=== PATIENT | female | born 1970 | race Asian ===

== ENCOUNTER 2016-08-28 12:32 | Emergency (ER) | payer OTHER ==
[~2016-08-28] VITALS: Ht 165.1 cm; Wt 108.6 kg
[~2016-08-28 12:32] MED LIST: ATOR20TA86 PO; BUSP5TAB20 PO; DIVA500T52 PO; LEVE250T55 PO; LEVE500T53 PO; LORA0.5T83 PO; PARO40TA PO; QUET300T2 PO; QUET50TA PO; TOPI100 PO
[2016-08-28] MEDS ORDERED: RANI75TA19 PO (13:12)
[2016-08-28 18:04] VITALS: BP 124/59
== END 2016-08-28 18:05 | disposition home or self-care (01) ==
LOC: EMS 12:33
DX: S09.90XA Unspecified injury of head, initial encounter (principal); Z88.4 Allergy status to anesthetic agent; Z88.2 Allergy status to sulfonamides; W07.XXXA Fall from chair, initial encounter; Y93.89 Activity, other specified; Y92.89 Other specified places as the place of occurrence of the external cause; Y99.8 Other external cause status
CPT/HCPCS: 93005; 99283

== ENCOUNTER 2017-05-05 17:23 | Inpatient (IN) | payer OTHER ==
[~2017-05-05] VITALS: Ht 165.1 cm; Wt 97.3 kg
[~2017-05-05 17:23] MED LIST changes: -LEVE500T53 PO; -QUET300T2 PO; +RANI75TA19 PO; -TOPI100 PO; +TOPI100T37 PO
[2017-05-05 19:11] LABS: HEMATOCRIT 41.1 % (36-46); HEMOGLOBIN 14.2 g/dL (12.0-16.0); MEAN CORPUSCULAR HEMOGLOBIN 33.7 pg (26.0-34.0); MEAN CORPUSCULAR HGB CONC 34.5 G/dL (31.0-37.0); MEAN CORPUSCULAR VOLUME 98 fL (80-100); PLATELET COUNT (AUTO) 172 K/uL (150-450); RED BLOOD CELL COUNT(AUTO) 4.21 MIL/uL (4.00-5.20); RED CELL DISTRIBUTION WIDTH 14.1 % (11.5-14.5); WHITE BLOOD COUNT (AUTO) 9.6 K/uL (4.5-11.0)
[2017-05-05 19:20] LABS: ANION GAP 9 mmol/L (8-16); CALCIUM, TOTAL 8.5 mg/dL (8.8-10.5); CARBON DIOXIDE 23 mmol/L (22-29); CHLORIDE 102 mmol/L (98-107); CREATININE 1.09 mg/dL (0.60-1.30); GLOMERULAR FILTR. RATE CALC 55 mL/min (>60); POTASSIUM 3.7 mmol/L (3.5-5.1); SODIUM SERUM 134 mmol/L (136-145); UREA NITROGEN, BLOOD 10 mg/dL (7-18)
[2017-05-05 19:26] LABS: ALANINE AMINOTRANSFERASE 44 U/L (12-78); ALBUMIN 2.6 g/dL (3.4-5.0); ASPARTATE AMINOTRANSFERASE 79 U/L (15-37); BILIRUBIN,TOTAL 0.7 mg/dL (0.1-1.0); TOTAL PROTEIN, SERUM 7.8 g/dL (6.4-8.2); VALPROIC ACID 135 mcg/mL (50-100)
[2017-05-05 20:06] LABS: LYMPHOCYTES % (MANUAL) 19 % (22-44); TOTAL CELLS COUNTED 100
[2017-05-05 20:06] LABS: APPEARANCE,URINE CLOUDY (CLEAR); GLUCOSE, URINE (UA) NEGATIVE (NEGATIVE); KETONES,URINE TRACE mg/dL (NEGATIVE); LEUKOCYTE ESTERASE ,URINE MODERATE (NEGATIVE); OCCULT BLOOD,URINE LARGE (NEGATIVE); PROTEIN,URINE POS 1+ (NEGATIVE)
[2017-05-05 20:07] LABS: ADD UA MICROSCOPIC YES
[2017-05-05] MEDS ORDERED: QUET300T2 PO (20:09)
[2017-05-05] MEDS ORDERED: PARO10TA89 PO (20:09)
[2017-05-05] MEDS ORDERED: ACETAMINOPHEN 325 MG TABLET PO PRN (20:15)
[2017-05-05] MEDS ORDERED: LACTULOSE 20 GM/30 ML SOLUTION UDCUP PO ONE (20:15)
[2017-05-05] MEDS ORDERED: ONDANSETRON HCL 4 MG/2 ML VIAL IVP PRN (20:15)
[2017-05-05 20:17] LABS: RBC,URINE 26-50 /HPF (0-2)
[2017-05-05 20:18] LABS: SQUAMOUS EPITHELIAL CELL,UR Few /LPF (None Seen)
[2017-05-05] MEDS ORDERED: SODIUM CHLORIDE 0.9% 1,000 ML IV ONE (21:00)
[2017-05-05] MEDS ORDERED: MAGNESIUM HYDROXIDE SUSPENSION 30 ML UDCUP PO PRN (21:00)
[2017-05-05 21:08] VITALS: BP 103/68
[2017-05-05] MEDS: CefTRIAXone 1 GM/DEXTROSE 50 ML IV SCH (23:46)
[2017-05-05] MEDS: DOCUSATE SODIUM 100 MG CAPSULE PO SCH (23:47)
[2017-05-05] MEDS: LevETIRAcetam 250 MG TABLET PO SCH (23:49)
[2017-05-05 23:59] VITALS: BP 107/65
[2017-05-06 04:00] VITALS: BP 133/74
[2017-05-06] MEDS: ACETAMINOPHEN 325 MG TABLET PO PRN ×2 (06:22→19:02)
[2017-05-06 07:45] VITALS: BP 97/59
[2017-05-06] MEDS: PANTOPRAZOLE SODIUM 40 MG DR TABLET PO SCH (08:24)
[2017-05-06] MEDS: LevETIRAcetam 250 MG TABLET PO SCH ×2 (08:24→20:28)
[2017-05-06] MEDS: DOCUSATE SODIUM 100 MG CAPSULE PO SCH ×2 (08:24→20:28)
[2017-05-06 12:51] VITALS: BP 101/62
[2017-05-06 16:29] VITALS: BP 131/68
[2017-05-06 19:56] VITALS: BP 126/79
[2017-05-06] MEDS: CefTRIAXone 1 GM/DEXTROSE 50 ML IV SCH (20:32)
[2017-05-07 00:03] VITALS: BP 114/66
[2017-05-07] MEDS ORDERED: OLAN5TAB2 PO (05:10)
[2017-05-07] MEDS ORDERED: HYD25 PO (05:10)
[2017-05-07] MEDS ORDERED: HYDR200T4 PO (05:10)
[2017-05-07] MEDS ORDERED: ALBU8HFA4 IH (05:26)
[2017-05-07] MEDS: ACETAMINOPHEN 325 MG TABLET PO PRN ×4 (06:10→22:59)
[2017-05-07 07:49] VITALS: BP 136/58
[2017-05-07] MEDS: DOCUSATE SODIUM 100 MG CAPSULE PO SCH ×2 (08:07→20:34)
[2017-05-07] MEDS: LevETIRAcetam 250 MG TABLET PO SCH ×2 (08:07→20:34)
[2017-05-07] MEDS: PANTOPRAZOLE SODIUM 40 MG DR TABLET PO SCH (08:07)
[2017-05-07 11:44] VITALS: BP 123/74
[2017-05-07 15:42] VITALS: BP 122/66
[2017-05-07 15:45] LABS: HEMATOCRIT 40.2 % (36-46); HEMOGLOBIN 13.6 g/dL (12.0-16.0); MEAN CORPUSCULAR HEMOGLOBIN 33.9 pg (26.0-34.0); MEAN CORPUSCULAR HGB CONC 33.9 G/dL (31.0-37.0); MEAN CORPUSCULAR VOLUME 100 fL (80-100); PLATELET COUNT (AUTO) 167 K/uL (150-450); RED BLOOD CELL COUNT(AUTO) 4.02 MIL/uL (4.00-5.20); RED CELL DISTRIBUTION WIDTH 14.6 % (11.5-14.5); WHITE BLOOD COUNT (AUTO) 12.1 K/uL (4.5-11.0)
[2017-05-07 16:09] LABS: ALBUMIN 2.4 g/dL (3.4-5.0); BILIRUBIN,TOTAL 0.5 mg/dL (0.1-1.0); CALCIUM, TOTAL 8.9 mg/dL (8.8-10.5); CREATININE 1.06 mg/dL (0.60-1.30); POTASSIUM 4.3 mmol/L (3.5-5.1); TOTAL PROTEIN, SERUM 7.2 g/dL (6.4-8.2)
[2017-05-07 16:31] LABS: RBC MORPHOLOGY COMMENT ABNORMAL R
[2017-05-07 16:50] LABS: BAND NEUTROPHILS % (MANUAL) 7 % (1-5); LYMPHOCYTES % (MANUAL) 13 % (22-44); TOTAL CELLS COUNTED 100
[2017-05-07] MEDS ORDERED: QUET200T PO (17:14)
[2017-05-07] MEDS ORDERED: LEVE500T53 PO (17:14)
[2017-05-07] MEDS ORDERED: PARO20TA24 PO (17:14)
[2017-05-07] MEDS ORDERED: ONDANSETRON HCL 4 MG/2 ML VIAL IVP PRN (17:15)
[2017-05-07 20:18] VITALS: BP 117/70
[2017-05-07] MEDS: CefTRIAXone 1 GM/DEXTROSE 50 ML IV SCH (20:34)
[2017-05-07] MEDS ORDERED: SODIUM CHLORIDE 0.9% 500 ML IV ONE (20:37)
[2017-05-07] MEDS: LORazepam 2 MG/ML VIAL IVP PRN (22:32)
[2017-05-07 23:01] VITALS: BP 114/59
[2017-05-08 04:00] VITALS: BP 96/56
[2017-05-08] MEDS: ACETAMINOPHEN 325 MG TABLET PO PRN ×3 (05:40→21:26)
[2017-05-08 07:44] VITALS: BP 106/59
[2017-05-08] MEDS: PANTOPRAZOLE SODIUM 40 MG DR TABLET PO SCH (08:31)
[2017-05-08] MEDS: LevETIRAcetam 250 MG TABLET PO SCH ×2 (08:31→20:24)
[2017-05-08] MEDS: DOCUSATE SODIUM 100 MG CAPSULE PO SCH ×2 (08:31→20:24)
[2017-05-08 11:54] VITALS: BP 111/63
[2017-05-08] MEDS ORDERED: BISACODYL 10 MG RECTAL RECTAL SUPPOSITORY PR PRN (12:00)
[2017-05-08] MEDS ORDERED: ALBUTEROL SULFATE 2.5 MG/0.5 ML NEB SOLUTION NEB PRN (12:00)
[2017-05-08] MEDS ORDERED: IPRATROPIUM BROMIDE 0.5 MG/2.5 ML NEB SOLUTION NEB PRN (12:00)
[2017-05-08] MEDS ORDERED: MAGNESIUM HYDROXIDE SUSPENSION 30 ML UDCUP PO PRN (12:00)
[2017-05-08] MEDS ORDERED: ZOLPIDEM TARTRATE 5 MG TABLET PO PRN (12:00)
[2017-05-08] MEDS ORDERED: ONDANSETRON HCL 4 MG/2 ML VIAL IVP PRN (12:00)
[2017-05-08] MEDS: PIPERACILLIN/TAZO 3.375 GM/D5W 50 ML IV SCH ×3 (12:17→23:59)
[2017-05-08] MEDS: MetroNIDAZOLE 500 MG/NACL 100 ML IV SCH ×2 (13:01→21:23)
[2017-05-08 15:24] VITALS: BP 113/64
[2017-05-08] MEDS: HEPARIN SODIUM,PORCINE 5,000 UNITS/ML VIAL SQ SCH ×2 (16:18→23:58)
[2017-05-08 19:52] VITALS: BP 106/60
[2017-05-08] MEDS: CefTRIAXone 1 GM/DEXTROSE 50 ML IV SCH (20:24)
[2017-05-08 23:27] VITALS: BP 98/55
[2017-05-09] MEDS: MetroNIDAZOLE 500 MG/NACL 100 ML IV SCH ×3 (04:44→21:38)
[2017-05-09 04:54] VITALS: BP 111/76
[2017-05-09] MEDS: OxyCODONE HCL/ACETAMINOPHEN 5-325 MG TABLET PO PRN ×4 (05:03→23:44)
[2017-05-09] MEDS: PIPERACILLIN/TAZO 3.375 GM/D5W 50 ML IV SCH ×4 (06:04→23:44)
[2017-05-09 08:00] VITALS: BP 105/60
[2017-05-09] MEDS: LevETIRAcetam 250 MG TABLET PO SCH ×2 (08:02→19:58)
[2017-05-09] MEDS: HEPARIN SODIUM,PORCINE 5,000 UNITS/ML VIAL SQ SCH ×3 (08:03→23:44)
[2017-05-09] MEDS: DOCUSATE SODIUM 100 MG CAPSULE PO SCH ×2 (08:03→21:00)
[2017-05-09] MEDS: PANTOPRAZOLE SODIUM 40 MG/VIAL IVP SCH (08:03)
[2017-05-09 11:21] VITALS: BP 107/58
[2017-05-09 15:36] VITALS: BP 116/77
[2017-05-09 16:10] LABS: BASOPHILS % (AUTO) 0.2 % (0.0-2.0); EOSINOPHILS % (AUTO) 0.4 % (1.0-6.0); HEMATOCRIT 40.8 % (36-46); LYMPHOCYTES # (AUTO) 2.2 K/uL (1.0-4.8); LYMPHOCYTES % (AUTO) 10.9 % (22.0-44.0); MEAN CORPUSCULAR HGB CONC 34.4 G/dL (31.0-37.0); MEAN CORPUSCULAR VOLUME 99 fL (80-100); MONOCYTES # (AUTO) 3.5 K/uL (0.1-1.0); MONOCYTES % (AUTO) 17.8 % (2.0-9.0); NEUTROPHILS % (AUTO) 70.7 % (40.0-70.0); PLATELET COUNT (AUTO) 190 K/uL (150-450); RED BLOOD CELL COUNT(AUTO) 4.11 MIL/uL (4.00-5.20); RED CELL DISTRIBUTION WIDTH 14.4 % (11.5-14.5); WHITE BLOOD COUNT (AUTO) 19.8 K/uL (4.5-11.0)
[2017-05-09 16:19] LABS: CALCIUM, TOTAL 8.8 mg/dL (8.8-10.5); CREATININE 1.19 mg/dL (0.60-1.30)
[2017-05-09 16:25] LABS: ALBUMIN 2.3 g/dL (3.4-5.0); BILIRUBIN,TOTAL 0.8 mg/dL (0.1-1.0); TOTAL PROTEIN, SERUM 7.7 g/dL (6.4-8.2)
[2017-05-09] MEDS: CefTRIAXone 1 GM/DEXTROSE 50 ML IV SCH (19:58)
[2017-05-09 20:08] VITALS: BP 116/69
[2017-05-09 23:37] VITALS: BP 109/55
[2017-05-10] MEDS: MORPHINE SULFATE 2 MG/ML SYRINGE IVP PRN ×2 (00:51→04:56)
[2017-05-10 03:33] VITALS: BP 118/70
[2017-05-10] MEDS: LORazepam 2 MG/ML VIAL IVP PRN ×2 (03:37→08:03)
[2017-05-10] MEDS: MetroNIDAZOLE 500 MG/NACL 100 ML IV SCH ×3 (04:46→21:15)
[2017-05-10] MEDS: PIPERACILLIN/TAZO 3.375 GM/D5W 50 ML IV SCH ×3 (06:20→17:20)
[2017-05-10 07:21] LABS: ALBUMIN 2.1 g/dL (3.4-5.0); CALCIUM, TOTAL 8.5 mg/dL (8.8-10.5); CREATININE 1.1 mg/dL (0.60-1.30); POTASSIUM 3.5 mmol/L (3.5-5.1)
[2017-05-10 08:03] VITALS: BP 126/59
[2017-05-10] MEDS: LevETIRAcetam 250 MG TABLET PO SCH ×2 (08:04→21:11)
[2017-05-10] MEDS: DOCUSATE SODIUM 100 MG CAPSULE PO SCH ×2 (08:04→21:19)
[2017-05-10] MEDS: HEPARIN SODIUM,PORCINE 5,000 UNITS/ML VIAL SQ SCH ×3 (08:04→23:32)
[2017-05-10] MEDS: PANTOPRAZOLE SODIUM 40 MG/VIAL IVP SCH (08:04)
[2017-05-10 08:38] LABS: BASOPHILS # (AUTO) 0.09 K/uL (0.00-0.20); BASOPHILS % (AUTO) 0.5 % (0.0-2.0); EOSINOPHILS # (AUTO) 0.07 K/uL (0.00-0.70); EOSINOPHILS % (AUTO) 0.37 % (1.0-6.0); HEMATOCRIT 38.4 % (36-46); HEMOGLOBIN 12.6 g/dL (12.0-16.0); LYMPHOCYTES # (AUTO) 2.1 K/uL (1.0-4.8); LYMPHOCYTES % (AUTO) 11.2 % (22.0-44.0); MEAN CORPUSCULAR HEMOGLOBIN 33.1 pg (26.0-34.0); MEAN CORPUSCULAR HGB CONC 32.8 G/dL (31.0-37.0); MEAN CORPUSCULAR VOLUME 101 fL (80-100); MONOCYTES # (AUTO) 3.7 K/uL (0.1-1.0); MONOCYTES % (AUTO) 19.6 % (2.0-9.0); NEUTROPHILS % (AUTO) 68.4 % (40.0-70.0); PLATELET COUNT (AUTO) 210 K/uL (150-450); RED CELL DISTRIBUTION WIDTH 14.6 % (11.5-14.5); WHITE BLOOD COUNT (AUTO) 19.1 K/uL (4.5-11.0)
[2017-05-10 08:43] LABS: RBC MORPHOLOGY COMMENT ABNORMAL RBC MORPH
[2017-05-10 11:15] VITALS: BP 122/62
[2017-05-10] MEDS: OxyCODONE HCL/ACETAMINOPHEN 5-325 MG TABLET PO PRN (11:36)
[2017-05-10] MEDS ORDERED: HydrOXYzine HCL 25 MG TABLET PO PRN (15:15)
[2017-05-10] MEDS ORDERED: RANITIDINE HCL 150 MG TABLET PO PRN (15:30)
[2017-05-10 16:13] VITALS: BP 115/62
[2017-05-10] MEDS: BusPIRone HCL 5 MG TABLET PO SCH ×2 (16:33→21:11)
[2017-05-10] MEDS: DIVALPROEX SODIUM 500 MG ER TABLET PO SCH ×2 (16:33→21:11)
[2017-05-10] MEDS ORDERED: IOVERSOL 320 MG/ML 100 ML VIAL ONE (17:30)
[2017-05-10] MEDS ORDERED: SODIUM CHLORIDE 0.9% 100 ML ONE (17:30)
[2017-05-10] MEDS ORDERED: BARIUM SULFATE 0.1% SUSPENSION 450 ML BOTTLE ONE (17:31)
[2017-05-10 19:42] VITALS: BP 98/59
[2017-05-10] MEDS: LevETIRAcetam 500 MG TABLET PO SCH (21:00)
[2017-05-10] MEDS: HYDROXYCHLOROQUINE SULFATE 200 MG TABLET PO SCH (21:11)
[2017-05-10] MEDS: TOPIRAMATE 100 MG TABLET PO SCH (21:12)
[2017-05-10] MEDS: QUEtiapine FUMARATE 200 MG TABLET PO SCH (21:12)
[2017-05-10] MEDS: CefTRIAXone 1 GM/DEXTROSE 50 ML IV SCH (22:29)
[2017-05-10 23:23] VITALS: BP 104/72
[2017-05-10] MEDS: DOXYCYCLINE 100 MG CAPSULE PO SCH (23:32)
[2017-05-10] MEDS: CefoTEtan DISOD 2 GM/DEXTROSE 50 ML IV SCH (23:32)
[2017-05-11] MEDS: OxyCODONE HCL/ACETAMINOPHEN 5-325 MG TABLET PO PRN ×2 (02:31→08:55)
[2017-05-11 04:29] VITALS: BP 109/56
[2017-05-11 05:58] LABS: HEMATOCRIT 33.2 % (36-46); HEMOGLOBIN 11.4 g/dL (12.0-16.0); MEAN CORPUSCULAR HEMOGLOBIN 34.1 pg (26.0-34.0); MEAN CORPUSCULAR HGB CONC 34.3 G/dL (31.0-37.0); MEAN CORPUSCULAR VOLUME 100 fL (80-100); PLATELET COUNT (AUTO) 256 K/uL (150-450); RED BLOOD CELL COUNT(AUTO) 3.33 MIL/uL (4.00-5.20); RED CELL DISTRIBUTION WIDTH 14.3 % (11.5-14.5); WHITE BLOOD COUNT (AUTO) 18.7 K/uL (4.5-11.0)
[2017-05-11 07:33] LABS: BAND NEUTROPHILS % (MANUAL) 2 % (1-5); LYMPHOCYTES % (MANUAL) 16 % (22-44); TOTAL CELLS COUNTED 100
[2017-05-11 08:07] VITALS: BP 115/69
[2017-05-11] MEDS: PANTOPRAZOLE SODIUM 40 MG/VIAL IVP SCH (08:38)
[2017-05-11] MEDS: ATORVASTATIN CALCIUM 20 MG TABLET PO SCH (08:38)
[2017-05-11] MEDS: DIVALPROEX SODIUM 500 MG ER TABLET PO SCH ×3 (08:39→20:54)
[2017-05-11] MEDS: DOCUSATE SODIUM 100 MG CAPSULE PO SCH ×2 (08:39→20:53)
[2017-05-11] MEDS: LevETIRAcetam 250 MG TABLET PO SCH ×2 (08:39→20:54)
[2017-05-11] MEDS: PARoxetine HCL 20 MG TABLET PO SCH (08:39)
[2017-05-11] MEDS: DOXYCYCLINE 100 MG CAPSULE PO SCH ×2 (08:40→20:56)
[2017-05-11] MEDS: TOPIRAMATE 100 MG TABLET PO SCH ×2 (08:40→20:55)
[2017-05-11] MEDS: BusPIRone HCL 5 MG TABLET PO SCH ×3 (08:40→20:53)
[2017-05-11] MEDS: HYDROXYCHLOROQUINE SULFATE 200 MG TABLET PO SCH ×2 (08:40→20:55)
[2017-05-11] MEDS: HEPARIN SODIUM,PORCINE 5,000 UNITS/ML VIAL SQ SCH ×2 (08:44→16:43)
[2017-05-11] MEDS: LevETIRAcetam 500 MG TABLET PO SCH ×2 (08:56→21:00)
[2017-05-11 09:41] LABS: APPEARANCE,URINE CLEAR (CLEAR); GLUCOSE, URINE (UA) NEGATIVE (NEGATIVE); KETONES,URINE NEGATIVE (NEGATIVE); LEUKOCYTE ESTERASE ,URINE NEGATIVE (NEGATIVE); OCCULT BLOOD,URINE NEGATIVE (NEGATIVE); PROTEIN,URINE NEGATIVE (NEGATIVE)
[2017-05-11 10:01] LABS: RBC,URINE 0-2 /HPF (0-2); SQUAMOUS EPITHELIAL CELL,UR Few /LPF (None Seen); WBC,URINE 0-2 /HPF (0-5)
[2017-05-11] MEDS: CefoTEtan DISOD 2 GM/DEXTROSE 50 ML IV SCH ×2 (11:26→23:00)
[2017-05-11] MEDS: MORPHINE SULFATE 2 MG/ML SYRINGE IVP PRN (15:05)
[2017-05-11 16:14] VITALS: BP 127/57
[2017-05-11 20:18] VITALS: BP 136/86
[2017-05-11] MEDS: QUEtiapine FUMARATE 200 MG TABLET PO SCH (20:55)
[2017-05-12] VITALS (7 sets, daily range): BP systolic 103–120; BP diastolic 51–69
[2017-05-12] MEDS: GuaiFENesin/D-METHORPHAN [SUGAR-FREE] 200-20MG/10 ML SYRUP UDCUP PO PRN (02:36)
[2017-05-12 06:10] LABS: HEMATOCRIT 34.6 % (36-46); HEMOGLOBIN 11.4 g/dL (12.0-16.0); MEAN CORPUSCULAR HEMOGLOBIN 33.3 pg (26.0-34.0); MEAN CORPUSCULAR HGB CONC 33.1 G/dL (31.0-37.0); MEAN CORPUSCULAR VOLUME 101 fL (80-100); PLATELET COUNT (AUTO) 254 K/uL (150-450); RED BLOOD CELL COUNT(AUTO) 3.43 MIL/uL (4.00-5.20); RED CELL DISTRIBUTION WIDTH 14.8 % (11.5-14.5); WHITE BLOOD COUNT (AUTO) 22.3 K/uL (4.5-11.0)
[2017-05-12 07:40] LABS: LYMPHOCYTES % (MANUAL) 14 % (22-44); TOTAL CELLS COUNTED 100
[2017-05-12] MEDS: HEPARIN SODIUM,PORCINE 5,000 UNITS/ML VIAL SQ SCH ×3 (08:00→16:46)
[2017-05-12] MEDS: DOCUSATE SODIUM 100 MG CAPSULE PO SCH ×2 (08:14→20:24)
[2017-05-12] MEDS: PANTOPRAZOLE SODIUM 40 MG/VIAL IVP SCH (08:14)
[2017-05-12] MEDS: DOXYCYCLINE 100 MG CAPSULE PO SCH ×2 (08:15→20:21)
[2017-05-12] MEDS: TOPIRAMATE 100 MG TABLET PO SCH ×2 (08:15→20:24)
[2017-05-12] MEDS: ATORVASTATIN CALCIUM 20 MG TABLET PO SCH (08:15)
[2017-05-12] MEDS: DIVALPROEX SODIUM 500 MG ER TABLET PO SCH ×3 (08:16→20:23)
[2017-05-12] MEDS: HYDROXYCHLOROQUINE SULFATE 200 MG TABLET PO SCH ×2 (08:16→20:23)
[2017-05-12] MEDS: PARoxetine HCL 20 MG TABLET PO SCH (08:17)
[2017-05-12] MEDS: LevETIRAcetam 500 MG TABLET PO SCH ×2 (08:17→20:24)
[2017-05-12] MEDS: BusPIRone HCL 5 MG TABLET PO SCH ×3 (08:18→20:24)
[2017-05-12] MEDS: CefoTEtan DISOD 2 GM/DEXTROSE 50 ML IV SCH ×2 (11:55→23:18)
[2017-05-12] MEDS: QUEtiapine FUMARATE 200 MG TABLET PO SCH (20:23)
[2017-05-13] MEDS: HEPARIN SODIUM,PORCINE 5,000 UNITS/ML VIAL SQ SCH ×4 (00:04→23:46)
[2017-05-13 01:45] VITALS: BP 103/50
[2017-05-13 05:23] VITALS: BP 102/50
[2017-05-13] MEDS: GuaiFENesin/D-METHORPHAN [SUGAR-FREE] 200-20MG/10 ML SYRUP UDCUP PO PRN (05:44)
[2017-05-13 06:05] LABS: HEMATOCRIT 34.5 % (36-46); HEMOGLOBIN 11.7 g/dL (12.0-16.0); MEAN CORPUSCULAR HEMOGLOBIN 33.9 pg (26.0-34.0); MEAN CORPUSCULAR HGB CONC 33.8 G/dL (31.0-37.0); MEAN CORPUSCULAR VOLUME 100 fL (80-100); PLATELET COUNT (AUTO) 260 K/uL (150-450); RED BLOOD CELL COUNT(AUTO) 3.44 MIL/uL (4.00-5.20); RED CELL DISTRIBUTION WIDTH 14.5 % (11.5-14.5); WHITE BLOOD COUNT (AUTO) 14.6 K/uL (4.5-11.0)
[2017-05-13 07:38] VITALS: BP 107/60
[2017-05-13 09:00] LABS: BAND NEUTROPHILS % (MANUAL) 2 % (1-5); LYMPHOCYTES % (MANUAL) 15 % (22-44); TOTAL CELLS COUNTED 100
[2017-05-13 09:01] LABS: RBC MORPHOLOGY COMMENT ABNORMAL R
[2017-05-13] MEDS: PARoxetine HCL 20 MG TABLET PO SCH (09:29)
[2017-05-13] MEDS: TOPIRAMATE 100 MG TABLET PO SCH ×2 (09:29→20:36)
[2017-05-13] MEDS: DIVALPROEX SODIUM 500 MG ER TABLET PO SCH ×3 (09:29→20:36)
[2017-05-13] MEDS: BusPIRone HCL 5 MG TABLET PO SCH ×3 (09:30→20:37)
[2017-05-13] MEDS: HYDROXYCHLOROQUINE SULFATE 200 MG TABLET PO SCH ×2 (09:30→20:36)
[2017-05-13] MEDS: DOXYCYCLINE 100 MG CAPSULE PO SCH ×2 (09:30→20:36)
[2017-05-13] MEDS: PANTOPRAZOLE SODIUM 40 MG/VIAL IVP SCH (09:32)
[2017-05-13] MEDS: LevETIRAcetam 500 MG TABLET PO SCH ×2 (09:32→20:41)
[2017-05-13] MEDS: ATORVASTATIN CALCIUM 20 MG TABLET PO SCH (09:32)
[2017-05-13] MEDS: DOCUSATE SODIUM 100 MG CAPSULE PO SCH ×2 (09:33→20:36)
[2017-05-13] MEDS: CefoTEtan DISOD 2 GM/DEXTROSE 50 ML IV SCH ×2 (11:16→22:40)
[2017-05-13] MEDS: OxyCODONE HCL/ACETAMINOPHEN 5-325 MG TABLET PO PRN (11:16)
[2017-05-13 11:30] VITALS: BP 103/64
[2017-05-13 14:28] LABS: GLUCOSE,POINT OF CARE 102 MG/DL (70-110)
[2017-05-13 15:48] VITALS: BP 101/68
[2017-05-13] MEDS: MORPHINE SULFATE 2 MG/ML SYRINGE IVP PRN (17:58)
[2017-05-13] MEDS ORDERED: SODIUM CHLORIDE 0.9% 1,000 ML IV ONE (18:31)
[2017-05-13 19:59] VITALS: BP 117/53
[2017-05-13] MEDS: QUEtiapine FUMARATE 200 MG TABLET PO SCH (20:36)
[2017-05-14] VITALS (7 sets, daily range): BP systolic 99–120; BP diastolic 50–77
[2017-05-14 06:54] LABS: BASOPHILS % (AUTO) 0.3 % (0.0-2.0); EOSINOPHILS % (AUTO) 1.5 % (1.0-6.0); HEMATOCRIT 33.6 % (36-46); HEMOGLOBIN 11.5 g/dL (12.0-16.0); LYMPHOCYTES # (AUTO) 2.2 K/uL (1.0-4.8); MEAN CORPUSCULAR HEMOGLOBIN 33.9 pg (26.0-34.0); MEAN CORPUSCULAR HGB CONC 34.1 G/dL (31.0-37.0); MEAN CORPUSCULAR VOLUME 99 fL (80-100); MONOCYTES # (AUTO) 2.4 K/uL (0.1-1.0); MONOCYTES % (AUTO) 19.8 % (2.0-9.0); NEUTROPHILS # (AUTO) 7.2 K/uL (1.8-7.7); NEUTROPHILS % (AUTO) 60.4 % (40.0-70.0); PLATELET COUNT (AUTO) 327 K/uL (150-450); RED BLOOD CELL COUNT(AUTO) 3.39 MIL/uL (4.00-5.20); RED CELL DISTRIBUTION WIDTH 14.4 % (11.5-14.5)
[2017-05-14] MEDS: TOPIRAMATE 100 MG TABLET PO SCH ×2 (08:17→20:04)
[2017-05-14] MEDS: DOCUSATE SODIUM 100 MG CAPSULE PO SCH ×2 (08:17→20:04)
[2017-05-14] MEDS: DIVALPROEX SODIUM 500 MG ER TABLET PO SCH ×3 (08:17→20:04)
[2017-05-14] MEDS: BusPIRone HCL 5 MG TABLET PO SCH ×3 (08:17→20:03)
[2017-05-14] MEDS: PANTOPRAZOLE SODIUM 40 MG/VIAL IVP SCH (08:18)
[2017-05-14] MEDS: LevETIRAcetam 500 MG TABLET PO SCH ×2 (08:20→20:04)
[2017-05-14] MEDS: PARoxetine HCL 20 MG TABLET PO SCH (08:20)
[2017-05-14] MEDS: DOXYCYCLINE 100 MG CAPSULE PO SCH ×2 (08:21→20:04)
[2017-05-14] MEDS: HYDROXYCHLOROQUINE SULFATE 200 MG TABLET PO SCH ×2 (08:21→20:04)
[2017-05-14] MEDS: HEPARIN SODIUM,PORCINE 5,000 UNITS/ML VIAL SQ SCH ×3 (08:41→23:19)
[2017-05-14] MEDS: ATORVASTATIN CALCIUM 20 MG TABLET PO SCH (08:42)
[2017-05-14] MEDS: CefoTEtan DISOD 2 GM/DEXTROSE 50 ML IV SCH ×2 (11:17→23:19)
[2017-05-14] MEDS: QUEtiapine FUMARATE 200 MG TABLET PO SCH (20:04)
[2017-05-14] MEDS: MORPHINE SULFATE 2 MG/ML SYRINGE IVP PRN (23:18)
[2017-05-15 04:49] VITALS: BP 102/56
[2017-05-15 06:48] LABS: BASOPHILS % (AUTO) 0.4 % (0.0-2.0); EOSINOPHILS % (AUTO) 1.1 % (1.0-6.0); HEMATOCRIT 34.3 % (36-46); HEMOGLOBIN 11.7 g/dL (12.0-16.0); LYMPHOCYTES # (AUTO) 2.3 K/uL (1.0-4.8); LYMPHOCYTES % (AUTO) 24.9 % (22.0-44.0); MEAN CORPUSCULAR HEMOGLOBIN 33.8 pg (26.0-34.0); MEAN CORPUSCULAR VOLUME 99 fL (80-100); MONOCYTES # (AUTO) 1.5 K/uL (0.1-1.0); MONOCYTES % (AUTO) 16.3 % (2.0-9.0); NEUTROPHILS # (AUTO) 5.2 K/uL (1.8-7.7); NEUTROPHILS % (AUTO) 57.3 % (40.0-70.0); PLATELET COUNT (AUTO) 380 K/uL (150-450); RED BLOOD CELL COUNT(AUTO) 3.45 MIL/uL (4.00-5.20); RED CELL DISTRIBUTION WIDTH 14.7 % (11.5-14.5); WHITE BLOOD COUNT (AUTO) 9.2 K/uL (4.5-11.0)
[2017-05-15 07:37] VITALS: BP 94/55
[2017-05-15] MEDS: HEPARIN SODIUM,PORCINE 5,000 UNITS/ML VIAL SQ SCH ×3 (09:55→23:18)
[2017-05-15] MEDS: PANTOPRAZOLE SODIUM 40 MG/VIAL IVP SCH (09:56)
[2017-05-15] MEDS: BusPIRone HCL 5 MG TABLET PO SCH ×3 (10:00→20:08)
[2017-05-15] MEDS: DIVALPROEX SODIUM 500 MG ER TABLET PO SCH ×3 (10:01→20:08)
[2017-05-15] MEDS: DOCUSATE SODIUM 100 MG CAPSULE PO SCH ×2 (10:01→20:08)
[2017-05-15] MEDS: LevETIRAcetam 500 MG TABLET PO SCH ×2 (10:02→20:08)
[2017-05-15] MEDS: ATORVASTATIN CALCIUM 20 MG TABLET PO SCH (10:02)
[2017-05-15] MEDS: PARoxetine HCL 20 MG TABLET PO SCH (10:03)
[2017-05-15] MEDS: HYDROXYCHLOROQUINE SULFATE 200 MG TABLET PO SCH ×2 (10:03→20:09)
[2017-05-15] MEDS: DOXYCYCLINE 100 MG CAPSULE PO SCH ×2 (10:04→20:08)
[2017-05-15] MEDS: TOPIRAMATE 100 MG TABLET PO SCH ×2 (10:04→20:08)
[2017-05-15] MEDS: OxyCODONE HCL/ACETAMINOPHEN 5-325 MG TABLET PO PRN ×3 (10:05→23:18)
[2017-05-15] MEDS: CefoTEtan DISOD 2 GM/DEXTROSE 50 ML IV SCH ×2 (10:52→23:00)
[2017-05-15] MEDS ORDERED: SODIUM CHLORIDE 0.9% 1,000 ML IV ONE (12:00)
[2017-05-15 12:27] VITALS: BP 105/64
[2017-05-15] MEDS ORDERED: BARIUM SULFATE 0.1% SUSPENSION 450 ML BOTTLE ONE (13:34)
[2017-05-15] MEDS ORDERED: IOVERSOL 350 MG/ML 150 ML VIAL ONE (13:34)
[2017-05-15 14:01] LABS: APPEARANCE,URINE CLEAR (CLEAR); GLUCOSE, URINE (UA) NEGATIVE (NEGATIVE); KETONES,URINE NEGATIVE (NEGATIVE); LEUKOCYTE ESTERASE ,URINE NEGATIVE (NEGATIVE); OCCULT BLOOD,URINE LARGE (NEGATIVE); PROTEIN,URINE NEGATIVE (NEGATIVE)
[2017-05-15 14:17] LABS: RBC,URINE 51-100 /HPF (0-2); SQUAMOUS EPITHELIAL CELL,UR Moderate /LPF (None Seen)
[2017-05-15 16:04] VITALS: BP 110/65
[2017-05-15 19:42] VITALS: BP 108/58
[2017-05-15] MEDS: TAMSULOSIN HCL 0.4 MG CAPSULE PO SCH (20:07)
[2017-05-15] MEDS: QUEtiapine FUMARATE 200 MG TABLET PO SCH (20:09)
[2017-05-15] MEDS: AMOXICILLIN TRIHYDRATE 500 MG CAPSULE PO SCH (23:17)
[2017-05-15] MEDS: MetroNIDAZOLE 500 MG TABLET PO SCH (23:18)
[2017-05-15 23:36] VITALS: BP 95/42
[2017-05-16] MEDS ORDERED: MetroNIDAZOLE 500 MG TABLET PO SCH
[2017-05-16] MEDS ORDERED: AMOXICILLIN TRIHYDRATE 500 MG CAPSULE PO SCH
[2017-05-16] MEDS ORDERED: DOXYCYCLINE 100 MG CAPSULE PO SCH
[2017-05-16 05:35] VITALS: BP 94/45
[2017-05-16 06:50] LABS: BASOPHILS % (AUTO) 0.5 % (0.0-2.0); EOSINOPHILS % (AUTO) 1.8 % (1.0-6.0); HEMATOCRIT 34.2 % (36-46); HEMOGLOBIN 11.7 g/dL (12.0-16.0); LYMPHOCYTES # (AUTO) 2.5 K/uL (1.0-4.8); MEAN CORPUSCULAR HEMOGLOBIN 33.7 pg (26.0-34.0); MEAN CORPUSCULAR HGB CONC 34.2 G/dL (31.0-37.0); MEAN CORPUSCULAR VOLUME 99 fL (80-100); MONOCYTES % (AUTO) 13.4 % (2.0-9.0); NEUTROPHILS % (AUTO) 52.3 % (40.0-70.0); PLATELET COUNT (AUTO) 408 K/uL (150-450); RED BLOOD CELL COUNT(AUTO) 3.47 MIL/uL (4.00-5.20); RED CELL DISTRIBUTION WIDTH 14.8 % (11.5-14.5); WHITE BLOOD COUNT (AUTO) 7.7 K/uL (4.5-11.0)
[2017-05-16] MEDS: OxyCODONE HCL/ACETAMINOPHEN 5-325 MG TABLET PO PRN (06:50)
[2017-05-16 06:59] LABS: ANION GAP 10 mmol/L (8-16); CALCIUM, TOTAL 8.5 mg/dL (8.8-10.5); CARBON DIOXIDE 22 mmol/L (22-29); CHLORIDE 109 mmol/L (98-107); CREATININE 0.89 mg/dL (0.60-1.30); GLOMERULAR FILTR. RATE CALC > 60 mL/min (>60); POTASSIUM 3.6 mmol/L (3.5-5.1); SODIUM SERUM 141 mmol/L (136-145); UREA NITROGEN, BLOOD 11 mg/dL (7-18)
[2017-05-16 07:28] VITALS: BP 94/55
[2017-05-16] MEDS: HEPARIN SODIUM,PORCINE 5,000 UNITS/ML VIAL SQ SCH (08:00)
[2017-05-16] MEDS: PANTOPRAZOLE SODIUM 40 MG/VIAL IVP SCH (09:00)
[2017-05-16] MEDS: DOCUSATE SODIUM 100 MG CAPSULE PO SCH (09:32)
[2017-05-16] MEDS: AMOXICILLIN TRIHYDRATE 500 MG CAPSULE PO SCH (09:32)
[2017-05-16] MEDS: TAMSULOSIN HCL 0.4 MG CAPSULE PO SCH (09:33)
[2017-05-16] MEDS: LevETIRAcetam 500 MG TABLET PO SCH (09:33)
[2017-05-16] MEDS: MetroNIDAZOLE 500 MG TABLET PO SCH (09:33)
[2017-05-16] MEDS: TOPIRAMATE 100 MG TABLET PO SCH (09:33)
[2017-05-16] MEDS: DOXYCYCLINE 100 MG CAPSULE PO SCH (09:33)
[2017-05-16] MEDS: ATORVASTATIN CALCIUM 20 MG TABLET PO SCH (09:34)
[2017-05-16] MEDS: BusPIRone HCL 5 MG TABLET PO SCH (09:34)
[2017-05-16] MEDS: PARoxetine HCL 20 MG TABLET PO SCH (09:34)
[2017-05-16] MEDS: DIVALPROEX SODIUM 500 MG ER TABLET PO SCH (09:35)
[2017-05-16] MEDS: HYDROXYCHLOROQUINE SULFATE 200 MG TABLET PO SCH (09:35)
[2017-05-16] MEDS: CefoTEtan DISOD 2 GM/DEXTROSE 50 ML IV SCH (11:00)
[2017-05-16 12:12] VITALS: BP 110/47
[2017-05-16] MEDS ORDERED: AMOX500C2 PO (12:53)
[2017-05-16] MEDS ORDERED: DOXY100C PO (12:54)
[2017-05-16] MEDS ORDERED: METR500 PO (12:55)
[2017-05-16] MEDS ORDERED: TRAM50TA4 PO (12:55)
== END 2017-05-16 15:00 | disposition home or self-care (01) | DRG 720 ==
LOC: EMS 17:27 → 6N 20:09
PROVIDERS: ADMIT Internal Medicine; ATTEND Internal Medicine
PROC: 0UPDXHZ Removal of Contraceptive Device from Uterus and Cervix, External Approach (ICD-10-PCS; principal; 2017-05-12)
DX: A41.9 Sepsis, unspecified organism (principal); G92 Toxic encephalopathy; F31.9 Bipolar disorder, unspecified; T42.6X5A Adverse effect of other antiepileptic and sedative-hypnotic drugs, initial encounter; N70.93 Salpingitis and oophoritis, unspecified; E78.5 Hyperlipidemia, unspecified; G40.909 Epilepsy, unspecified, not intractable, without status epilepticus; E66.9 Obesity, unspecified; K21.9 Gastro-esophageal reflux disease without esophagitis; K52.9 Noninfective gastroenteritis and colitis, unspecified; M06.9 Rheumatoid arthritis, unspecified; N30.90 Cystitis, unspecified without hematuria; R63.4 Abnormal weight loss; Y92.89 Other specified places as the place of occurrence of the external cause; Z82.49 Family history of ischemic heart disease and other diseases of the circulatory system; Z83.3 Family history of diabetes mellitus; Z97.5 Presence of (intrauterine) contraceptive device; Z88.2 Allergy status to sulfonamides; Z88.8 Allergy status to other drugs, medicaments and biological substances; Z68.35 Body mass index [BMI] 35.0-35.9, adult; Z90.49 Acquired absence of other specified parts of digestive tract; Z79.899 Other long term (current) drug therapy
CPT/HCPCS: 51702; 74176; 74177; 76856; 82962; 84145; 87015; 87040; 87070; 87086; 87101; 87106; 87205; 93005; 97162; 99291; C9113; G0480; J0696; J1644; J2060; J2270; J2405; J2543; J3490; J7030; J7040; J7050

== ENCOUNTER 2017-07-24 16:19 | Emergency (ER) | payer OTHER ==
[~2017-07-24] VITALS: Ht 165.1 cm; Wt 85.9 kg
[~2017-07-24 16:19] MED LIST changes: +ALBU8HFA4 IH; +AMOX500C2 PO; +DOXY100C PO; +HYD25 PO; +HYDR200T4 PO; -LEVE250T55 PO; +LEVE500T53 PO; -LORA0.5T83 PO; +METR500 PO; +PARO20TA24 PO; -PARO40TA PO; +QUET200T PO; -QUET50TA PO; +TRAM50TA4 PO
[2017-07-24 20:25] LABS: BASOPHILS % (AUTO) 0.5 % (0.0-2.0); EOSINOPHILS % (AUTO) 0.4 % (1.0-6.0); HEMATOCRIT 43.3 % (36-46); HEMOGLOBIN 14.9 g/dL (12.0-16.0); LYMPHOCYTES # (AUTO) 2.5 K/uL (1.0-4.8); LYMPHOCYTES % (AUTO) 44.5 % (22.0-44.0); MEAN CORPUSCULAR HEMOGLOBIN 33.7 pg (26.0-34.0); MEAN CORPUSCULAR HGB CONC 34.4 G/dL (31.0-37.0); MEAN CORPUSCULAR VOLUME 98 fL (80-100); MONOCYTES # (AUTO) 0.9 K/uL (0.1-1.0); MONOCYTES % (AUTO) 16.5 % (2.0-9.0); NEUTROPHILS # (AUTO) 2.1 K/uL (1.8-7.7); NEUTROPHILS % (AUTO) 38.1 % (40.0-70.0); RED BLOOD CELL COUNT(AUTO) 4.42 MIL/uL (4.00-5.20); RED CELL DISTRIBUTION WIDTH 13.9 % (11.5-14.5)
[2017-07-24 20:28] LABS: ANION GAP 9 mmol/L (8-16); CARBON DIOXIDE 26 mmol/L (22-29); CHLORIDE 101 mmol/L (98-107); CREATININE 0.97 mg/dL (0.60-1.30); GLOMERULAR FILTR. RATE CALC > 60 mL/min (>60); GLUCOSE,RANDOM 74 mg/dL (70-110); POTASSIUM 4.3 mmol/L (3.5-5.1); SODIUM SERUM 136 mmol/L (136-145); UREA NITROGEN, BLOOD 15 mg/dL (7-18)
[2017-07-24 20:35] LABS: ALANINE AMINOTRANSFERASE 65 U/L (12-78); ALBUMIN 2.9 g/dL (3.4-5.0); ALKALINE PHOSPHATASE 47 U/L (46-116); ASPARTATE AMINOTRANSFERASE 103 U/L (15-37); BILIRUBIN,TOTAL 0.4 mg/dL (0.1-1.0); TOTAL PROTEIN, SERUM 8.1 g/dL (6.4-8.2)
[2017-07-24 21:30] LABS: PLATELET COUNT (AUTO) 88 K/uL (150-450)
[2017-07-24] MEDS ORDERED: BARIUM SULFATE 0.1% SUSPENSION 450 ML BOTTLE PO ONE (22:15)
[2017-07-24] MEDS ORDERED: IOVERSOL 350 MG/ML 100 ML VIAL ONE (22:53)
[2017-07-25 01:02] LABS: APPEARANCE,URINE CLEAR (CLEAR); BILIRUBIN,URINE NEGATIVE (NEGATIVE); GLUCOSE, URINE (UA) NEGATIVE (NEGATIVE); KETONES,URINE NEGATIVE (NEGATIVE); LEUKOCYTE ESTERASE ,URINE NEGATIVE (NEGATIVE); NITRATE,URINE NEGATIVE (NEGATIVE); OCCULT BLOOD,URINE NEGATIVE (NEGATIVE); PROTEIN,URINE NEGATIVE (NEGATIVE); UROBILINOGEN,URINE 0.2 mg/dL (<=1.0)
[2017-07-25 03:15] VITALS: BP 123/65
== END 2017-07-25 03:27 | disposition home or self-care (01) ==
LOC: EMS 16:21
DX: R10.84 Generalized abdominal pain (principal); N83.202 Unspecified ovarian cyst, left side; F31.9 Bipolar disorder, unspecified; Z88.8 Allergy status to other drugs, medicaments and biological substances; Z79.899 Other long term (current) drug therapy; Z90.49 Acquired absence of other specified parts of digestive tract; Z98.890 Other specified postprocedural states
CPT/HCPCS: 36415; 74177; 76856; 80053; 81003; 84703; 85025; 99285; Q9967; Z7610

== ENCOUNTER 2018-01-09 20:13 | Emergency (ER) | payer OTHER ==
[~2018-01-09] VITALS: Ht 162.6 cm; Wt 84.0 kg
[~2018-01-09 20:13] MED LIST changes: -AMOX500C2 PO; -DIVA500T52 PO; -DOXY100C PO; -HYD25 PO; -HYDR200T4 PO; -METR500 PO; -PARO20TA24 PO; -RANI75TA19 PO; -TRAM50TA4 PO
[2018-01-09] MEDS ORDERED: LORA0.5T2 PO (20:32)
[2018-01-09] MEDS ORDERED: OLAN5TAB2 PO (20:32)
[2018-01-09] MEDS ORDERED: ATOR20TA86 PO (20:32)
[2018-01-09] MEDS ORDERED: RANI150T7 PO (20:32)
[2018-01-09] MEDS ORDERED: FOLI1 PO (20:32)
[2018-01-09] MEDS ORDERED: DIPH25 PO (20:32)
[2018-01-09] MEDS ORDERED: HYDR200T4 PO (20:32)
[2018-01-09] MEDS ORDERED: PARO20TA24 PO (20:32)
[2018-01-09 20:35] VITALS: BP 110/52
== END 2018-01-09 20:59 | disposition home or self-care (01) ==
LOC: EMS 20:15
DX: J40 Bronchitis, not specified as acute or chronic (principal); Z88.2 Allergy status to sulfonamides; Z88.8 Allergy status to other drugs, medicaments and biological substances
CPT/HCPCS: 99283

== ENCOUNTER 2020-11-18 17:42 | Emergency (ER) | payer OTHER ==
[~2020-11-18] VITALS: Ht 167.6 cm; Wt 120.0 kg
[~2020-11-18 17:42] MED LIST changes: +DIPH25 PO; +FOLI-130 PO; +HYDR200T4 PO; +LORA-999 PO; +OLAN5TAB52 PO; +PARO-38 PO; +RANI150T7 PO
[2020-11-18] MEDS ORDERED: DIVA-80 PO (18:01)
[2020-11-18] MEDS ORDERED: QUET400T12 PO (18:01)
[2020-11-18] MEDS ORDERED: LEVE750T10 PO (18:01)
[2020-11-18] MEDS ORDERED: PARO30TA60 PO (18:01)
[2020-11-18] MEDS ORDERED: TOPI200T16 PO (18:01)
[2020-11-18] MEDS ORDERED: ALBUTEROL SULFATE HFA 90 MCG/PUFF 8 GM INHALER IH ONE (18:15)
[2020-11-18 19:21] VITALS: BP 126/68
== END 2020-11-18 19:22 | disposition home or self-care (01) ==
LOC: EMS 17:42
DX: J45.901 Unspecified asthma with (acute) exacerbation (principal)
CPT/HCPCS: 94640; 99283; J3535

== ENCOUNTER 2022-03-13 19:44 | Emergency (ER) | payer MEDICAID, OTHER ==
[~2022-03-13] VITALS: Ht 165.1 cm; Wt 112.1 kg
[~2022-03-13 19:44] MED LIST changes: +DIVA-80 PO; -HYDR200T4 PO; -LEVE500T53 PO; +LEVE750T10 PO; -OLAN5TAB52 PO; -PARO-38 PO; +PARO30TA60 PO; -QUET200T PO; +QUET400T13 PO; -RANI150T7 PO; -TOPI100T37 PO; +TOPI200T16 PO
[2022-03-13] MEDS ORDERED: ALBU8HFA IH (19:51)
[2022-03-13] MEDS ORDERED: OMEP20CA12 PO (19:51)
[2022-03-13] MEDS ORDERED: QUET200T PO (19:51)
[2022-03-13] MEDS ORDERED: BUSP10TA23 PO (19:51)
[2022-03-13 22:11] LABS: BASOPHILS % (AUTO) 0.7 % (0.0-2.0); HEMATOCRIT 42.4 % (36-46); LYMPHOCYTES % (AUTO) 33.4 % (22.0-44.0); MEAN CORPUSCULAR HEMOGLOBIN 32.2 pg (26.0-34.0); MEAN CORPUSCULAR VOLUME 98 fL (80-100); MONOCYTES % (AUTO) 11.3 % (2.0-9.0); NEUTROPHILS # (AUTO) 4.9 K/uL (1.8-7.7); NEUTROPHILS % (AUTO) 53.6 % (40.0-70.0); PLATELET COUNT (AUTO) 175 K/uL (150-450); RED BLOOD CELL COUNT(AUTO) 4.35 MIL/uL (4.00-5.20); RED CELL DISTRIBUTION WIDTH 13.3 % (11.5-14.5)
[2022-03-13 22:17] LABS: CALCIUM, TOTAL 9.3 mg/dL (8.8-10.5); CREATININE 1.01 mg/dL (0.60-1.30); POTASSIUM 3.4 mmol/L (3.5-5.1)
[2022-03-13 22:23] LABS: ALBUMIN 3.4 g/dL (3.4-5.0); BILIRUBIN,TOTAL 0.3 mg/dL (0.1-1.0)
[2022-03-13] MEDS ORDERED: LevETIRAcetam 1,000 MG in DEXTROSE 5%-WATER 100 ML IV ONE (22:45)
[2022-03-13 23:40] VITALS: BP 124/87
[2022-03-13] MEDS ORDERED: LEVE750T10 PO (23:42)
[2022-03-13] MEDS ORDERED: DIVA-80 PO (23:42)
[2022-03-13] MEDS ORDERED: TOPI200T16 PO (23:42)
== END 2022-03-14 00:32 | disposition home or self-care (01) ==
LOC: EMS 19:45
DX: G40.909 Epilepsy, unspecified, not intractable, without status epilepticus (principal); F31.9 Bipolar disorder, unspecified; Z86.69 Personal history of other diseases of the nervous system and sense organs; Z86.59 Personal history of other mental and behavioral disorders; Z90.49 Acquired absence of other specified parts of digestive tract; Z98.890 Other specified postprocedural states; Z88.1 Allergy status to other antibiotic agents; Z76.0 Encounter for issue of repeat prescription
CPT/HCPCS: 99284; 96365; 80053; 80164; 85025; 36415; J0712; J7060

== ENCOUNTER 2022-04-24 21:55 | Emergency (ER) | payer MEDICAID, OTHER ==
[~2022-04-24] VITALS: Ht 165.1 cm; Wt 112.7 kg
[~2022-04-24 21:55] MED LIST changes: +ALBU8HFA IH; -ALBU8HFA4 IH; +BUSP10TA23 PO; -BUSP5TAB20 PO; +OMEP20CA12 PO; +QUET200T PO; -QUET400T13 PO
[2022-04-24] MEDS ORDERED: QUET400T PO (22:04)
[2022-04-24] MEDS ORDERED: SODIUM CHLORIDE 0.9% 1,000 ML IV ONE (23:45)
[2022-04-24] MEDS ORDERED: LevETIRAcetam 1,000 MG in DEXTROSE 5%-WATER 100 ML IV ONE (23:45)
[2022-04-25] MEDS ORDERED: LevETIRAcetam 250 MG TABLET PO ONE
[2022-04-25 00:08] LABS: BASOPHILS % (AUTO) 0.5 % (0.0-2.0); EOSINOPHILS % (AUTO) 1.7 % (1.0-6.0); HEMATOCRIT 42.7 % (36-46); HEMOGLOBIN 14.2 g/dL (12.0-16.0); LYMPHOCYTES # (AUTO) 3.3 K/uL (1.0-4.8); LYMPHOCYTES % (AUTO) 37.9 % (22.0-44.0); MEAN CORPUSCULAR HEMOGLOBIN 32.7 pg (26.0-34.0); MEAN CORPUSCULAR HGB CONC 33.2 G/dL (31.0-37.0); MEAN CORPUSCULAR VOLUME 98 fL (80-100); MONOCYTES % (AUTO) 11.6 % (2.0-9.0); NEUTROPHILS # (AUTO) 4.3 K/uL (1.8-7.7); NEUTROPHILS % (AUTO) 48.3 % (40.0-70.0); PLATELET COUNT (AUTO) 175 K/uL (150-450); RED BLOOD CELL COUNT(AUTO) 4.34 MIL/uL (4.00-5.20); RED CELL DISTRIBUTION WIDTH 13.3 % (11.5-14.5)
[2022-04-25 00:17] LABS: CALCIUM, TOTAL 9.7 mg/dL (8.8-10.5); CREATININE 1.07 mg/dL (0.60-1.30); POTASSIUM 3.8 mmol/L (3.5-5.1)
[2022-04-25 00:22] LABS: ALBUMIN 3.5 g/dL (3.4-5.0); BILIRUBIN,TOTAL 0.3 mg/dL (0.1-1.0)
[2022-04-25] MEDS ORDERED: DIVA-80 PO (00:58)
[2022-04-25] MEDS ORDERED: LEVE750T4 PO (00:58)
[2022-04-25] MEDS ORDERED: TOPI200T16 PO (00:59)
[2022-04-25 01:00] VITALS: BP 110/60
[2022-04-25] MEDS ORDERED: LORA-999 PO (01:02)
[2022-04-25] MEDS ORDERED: QUET200T PO (01:02)
[2022-04-25] MEDS ORDERED: PARO30TA76 PO (01:02)
[2022-04-25] MEDS ORDERED: BUSP10TA23 PO (01:02)
== END 2022-04-25 01:30 | disposition home or self-care (01) ==
LOC: EMS 22:23
DX: G40.909 Epilepsy, unspecified, not intractable, without status epilepticus (principal); F31.9 Bipolar disorder, unspecified; Z86.59 Personal history of other mental and behavioral disorders; Z86.69 Personal history of other diseases of the nervous system and sense organs; Z90.49 Acquired absence of other specified parts of digestive tract; Z98.890 Other specified postprocedural states; Z88.1 Allergy status to other antibiotic agents; Z76.0 Encounter for issue of repeat prescription
CPT/HCPCS: 80053; 84703; 85025; 99283; J0712; J7060